=== PATIENT | male | born 1965 | race African-American/Black ===

== ENCOUNTER 2022-01-10 08:52 | Inpatient (IN) | payer MEDICAID, OTHER ==
[~2022-01-10] VITALS: Ht 165.1 cm; Wt 73.1 kg
[~2022-01-10 08:52] MED LIST: AMLO10TA80; CLON0.1T; DIPH25CA83 PO; FAMO-135 PO; HYDR25TA; LISI10TA26; MED4 GT
[2022-01-10] MEDS ORDERED: FUROSEMIDE 40MG/4ML VIAL IV ONE (09:15)
[2022-01-10 09:31] LABS: BASOPHILS % 1.3 % (0.0-2.0); EOSINOPHILS % 1.1 % (0.0-5.0); HEMOGLOBIN. 11.8 g/dL (14.0-18.0); LYMPHOCYTES % 20.3 % (20.0-50.0); MEAN CORPUSCULAR HEMOGLOBIN 24.9 pg (28.0-32.0); MEAN CORPUSCULAR VOLUME 78.4 fL (80.0-94.0); MEAN PLATELET VOLUME 11.1 fl (7.4-10.4); MONOCYTES % 12.6 % (2.0-8.0); NEUTROPHILS % 64.7 % (40.0-76.0); PLATELET 206 x1000/uL (130-400); RED BLOOD CELL COUNT 4.73 mill/uL (4.7-6.1)
[2022-01-10 09:38] LABS: CHLORIDE 110 mEq/L (98-107)
[2022-01-10] MEDS ORDERED: ASPIRIN 325MG TABLET PO ONE (10:45)
[2022-01-10] MEDS ORDERED: ACETAMINOPHEN 325MG TABLET PO PRN (12:45)
[2022-01-10] MEDS ORDERED: ONDANSETRON HCL 4MG/2ML INJ IV PRN (12:45)
[2022-01-10] MEDS ORDERED: CLONIDINE 0.1MG TABLET PO PRN (12:45)
[2022-01-10] MEDS: IPRATROPIUM/ALBUTEROL 0.5-3(2.5)MG/3ML NEB HHN PRN (13:08)
[2022-01-10] MEDS ORDERED: REGADENOSON 0.4 MG/5 ML IV NR (14:00)
[2022-01-10 15:30] LABS: *COCAINE SCREEN URINE PRESUMTIVE POSITIVE (NEGATIVE)
[2022-01-10 15:31] LABS: *AMPHETAMINES SCREEN URINE NEGATIVE (NEGATIVE); *BARBITURATES SCREEN URINE NEGATIVE (NEGATIVE); *BENZODIAZEPINES SCREEN URINE NEGATIVE (NEGATIVE); CANNABINOID URINE SCREEN NEGATIVE (NEGATIVE); METHADONE URINE SCREEN NEGATIVE (NEGATIVE); OPIATES URINE SCREEN NEGATIVE (NEGATIVE); PHENCYCLIDINE URINE SCREEN NEGATIVE (NEGATIVE)
[2022-01-10 19:45] VITALS: BP 130/95
[2022-01-10 20:00] VITALS: BP 135/9
[2022-01-10] MEDS: AMLODIPINE 5MG TABLET PO SCH (21:23)
[2022-01-10] MEDS: CLONIDINE 0.1MG TABLET PO SCH (22:03)
[2022-01-11] VITALS: BP 133/80
[2022-01-11] MEDS ORDERED: ALLO100T MT (01:08)
[2022-01-11] MEDS ORDERED: POTA10CA42 MT (01:08)
[2022-01-11] MEDS ORDERED: COLC0.6C3 MT (01:08)
[2022-01-11] MEDS ORDERED: ISOS20TA8 MT (01:08)
[2022-01-11] MEDS ORDERED: ALBU6.7H9 INH (01:08)
[2022-01-11] MEDS ORDERED: FURO20TA4 PO (01:08)
[2022-01-11 04:00] VITALS: BP 135/84
[2022-01-11 08:00] VITALS: BP 122/92
[2022-01-11 08:08] LABS: BASOPHILS % 0.8 % (0.0-2.0); EOSINOPHILS % 6.4 % (0.0-5.0); HEMATOCRIT. 37.3 % (42.0-52.0); HEMOGLOBIN. 11.8 g/dL (14.0-18.0); LYMPHOCYTES % 33.5 % (20.0-50.0); MEAN CORPUSCULAR HEMOGLOBIN 24.8 pg (28.0-32.0); MEAN CORPUSCULAR VOLUME 78.3 fL (80.0-94.0); MEAN PLATELET VOLUME 11.8 fl (7.4-10.4); MONOCYTES % 12.6 % (2.0-8.0); NEUTROPHILS % 46.7 % (40.0-76.0); PLATELET 202 x1000/uL (130-400); RED BLOOD CELL COUNT 4.76 mill/uL (4.7-6.1); RED CELL DISTRIBUTION WIDTH 18.3 % (11.6-14.6)
[2022-01-11 08:16] LABS: CHLORIDE 111 mEq/L (98-107)
[2022-01-11] MEDS: AMLODIPINE 5MG TABLET PO SCH ×2 (09:06→21:28)
[2022-01-11] MEDS: FUROSEMIDE 40MG/4ML VIAL IV SCH (09:07)
[2022-01-11] MEDS: CLONIDINE 0.1MG TABLET PO SCH ×2 (09:07→21:28)
[2022-01-11] MEDS: ASPIRIN 81MG EC TABLET PO SCH (09:07)
[2022-01-11 12:00] VITALS: BP 118/82
[2022-01-11] MEDS ORDERED: CLONIDINE 0.1MG TABLET PO PRN (12:00)
[2022-01-11 15:49] VITALS: BP 112/71
[2022-01-11 18:36] LABS: CLARITY URINE CLEAR (CLEAR); COLOR URINE YELLOW (YELLOW); KETONES URINE NEGATIVE (NEGATIVE); LEUKOCYTE ESTERASE URINE NEGATIVE (NEGATIVE); NITRITE URINE NEGATIVE (NEGATIVE); OCCULT BLOOD URINE NEGATIVE (NEGATIVE); PROTEIN URINE 1+ (NEGATIVE); SPECIFIC GRAVITY URINE 1.011 (1.005-1.030); UROBILINOGEN URINE 0.2 E.U./dL (0.2-1.0)
[2022-01-11 20:00] VITALS: BP 115/78
[2022-01-12] VITALS: BP 112/81
[2022-01-12 04:00] VITALS: BP 124/85
[2022-01-12 08:00] VITALS: BP 142/94
[2022-01-12] MEDS: ASPIRIN 81MG EC TABLET PO SCH (08:17)
[2022-01-12] MEDS: FUROSEMIDE 40MG/4ML VIAL IV SCH (08:17)
[2022-01-12] MEDS: CLONIDINE 0.1MG TABLET PO SCH ×3 (08:18→22:00)
[2022-01-12] MEDS: COLCHICINE 0.6MG TABLET PO SCH (08:19)
[2022-01-12] MEDS: PREDNISONE 20MG TABLET PO SCH (08:19)
[2022-01-12] MEDS: ALLOPURINOL 300 MG TABLET PO SCH (08:22)
[2022-01-12] MEDS: AMLODIPINE 5MG TABLET PO SCH ×2 (08:24→22:51)
[2022-01-12 08:40] LABS: BASOPHILS % 1.1 % (0.0-2.0); EOSINOPHILS % 6.7 % (0.0-5.0); HEMATOCRIT. 39.2 % (42.0-52.0); HEMOGLOBIN. 12.4 g/dL (14.0-18.0); LYMPHOCYTES % 25.7 % (20.0-50.0); MEAN CORPUSCULAR HEMOGLOBIN 24.8 pg (28.0-32.0); MEAN CORPUSCULAR VOLUME 78.3 fL (80.0-94.0); MEAN PLATELET VOLUME 11.6 fl (7.4-10.4); MONOCYTES % 13.9 % (2.0-8.0); NEUTROPHILS % 52.6 % (40.0-76.0); PLATELET 211 x1000/uL (130-400); RED BLOOD CELL COUNT 5.01 mill/uL (4.7-6.1); RED CELL DISTRIBUTION WIDTH 18.4 % (11.6-14.6)
[2022-01-12] MEDS: IPRATROPIUM/ALBUTEROL 0.5-3(2.5)MG/3ML NEB HHN PRN (08:55)
[2022-01-12 12:00] VITALS: BP 138/85
[2022-01-12 16:00] VITALS: BP 109/77
[2022-01-12] MEDS: FUROSEMIDE 40MG TABLET PO SCH (18:04)
[2022-01-12 20:00] VITALS: BP 114/80
[2022-01-12] MEDS ORDERED: AMLODIPINE 5MG TABLET ONE (22:41)
[2022-01-13] VITALS: BP 125/75
[2022-01-13 04:00] VITALS: BP 112/61
[2022-01-13] MEDS: IPRATROPIUM/ALBUTEROL 0.5-3(2.5)MG/3ML NEB HHN PRN (04:16)
[2022-01-13] MEDS: CLONIDINE 0.1MG TABLET PO SCH (06:00)
[2022-01-13 06:55] LABS: BASOPHILS % 0.6 % (0.0-2.0); EOSINOPHILS % 1.2 % (0.0-5.0); HEMATOCRIT. 35.5 % (42.0-52.0); HEMOGLOBIN. 11.5 g/dL (14.0-18.0); LYMPHOCYTES % 24.6 % (20.0-50.0); MEAN CORPUSCULAR HEMOGLOBIN 25.2 pg (28.0-32.0); MEAN CORPUSCULAR VOLUME 77.8 fL (80.0-94.0); MEAN PLATELET VOLUME 11.6 fl (7.4-10.4); MONOCYTES % 13.2 % (2.0-8.0); NEUTROPHILS % 60.4 % (40.0-76.0); PLATELET 184 x1000/uL (130-400); RED BLOOD CELL COUNT 4.56 mill/uL (4.7-6.1); RED CELL DISTRIBUTION WIDTH 17.5 % (11.6-14.6)
[2022-01-13 07:09] LABS: CHLORIDE 109 mEq/L (98-107)
[2022-01-13 07:26] LABS: PHOSPHORUS 3.2 mg/dL (2.5-4.9)
[2022-01-13 08:00] VITALS: BP 138/93
[2022-01-13] MEDS ORDERED: PREDNISONE 20MG TABLET ONE (08:17)
[2022-01-13] MEDS ORDERED: POTASSIUM CHLORIDE 20MEQ TABLET SR PO ONE (08:22)
[2022-01-13] MEDS ORDERED: AMLODIPINE 5MG TABLET ONE (08:22)
[2022-01-13] MEDS ORDERED: ASPIRIN 81MG EC TABLET PO ONE (08:23)
[2022-01-13] MEDS ORDERED: POTASSIUM CHLORIDE 10MEQ TABLET SR PO SCH (09:00)
[2022-01-13] MEDS ORDERED: FUROSEMIDE 40MG TABLET PO SCH (09:00)
[2022-01-13] MEDS ORDERED: ALLO300T2 PO (09:12)
[2022-01-13] MEDS ORDERED: POTA10CA42 MT (09:12)
[2022-01-13] MEDS ORDERED: FURO40TA5 PO (09:12)
[2022-01-13] MEDS ORDERED: P20 PO (09:12)
[2022-01-13] MEDS ORDERED: ASPI-1406 PO (09:12)
[2022-01-13] MEDS ORDERED: ATOR10TA69 MT (09:12)
[2022-01-13] MEDS ORDERED: FAMO20TA8 MT (09:12)
[2022-01-13] MEDS: FUROSEMIDE 40MG TABLET PO SCH (09:34)
[2022-01-13] MEDS: AMLODIPINE 5MG TABLET PO SCH (09:34)
[2022-01-13] MEDS: ASPIRIN 81MG EC TABLET PO SCH (09:34)
[2022-01-13] MEDS: PREDNISONE 20MG TABLET PO SCH (09:35)
[2022-01-13] MEDS: ALLOPURINOL 300 MG TABLET PO SCH (09:35)
[2022-01-13] MEDS: COLCHICINE 0.6MG TABLET PO SCH (09:35)
[2022-01-15 04:07] LABS: ANA IFA Negative (.)
== END 2022-01-13 12:05 | disposition home or self-care (01) | DRG 194 ==
LOC: ER 08:52 → EDBEDREQ 11:11 → 8WST 12:25 → EDBEDREQTM 12:29 → EDBEDREQ 12:29
PROVIDERS: ADMIT Internal Medicine; ATTEND Internal Medicine
DX: I13.0 Hypertensive heart and chronic kidney disease with heart failure and stage 1 through stage 4 chronic kidney disease, or unspecified chronic kidney disease (principal); J96.01 Acute respiratory failure with hypoxia; I21.4 Non-ST elevation (NSTEMI) myocardial infarction; E44.0 Moderate protein-calorie malnutrition; T56.0X1A Toxic effect of lead and its compounds, accidental (unintentional), initial encounter; I50.23 Acute on chronic systolic (congestive) heart failure; N17.9 Acute kidney failure, unspecified; E78.5 Hyperlipidemia, unspecified; R77.8 Other specified abnormalities of plasma proteins; F14.129 Cocaine abuse with intoxication, unspecified; M19.019 Primary osteoarthritis, unspecified shoulder; M1A.9XX1 Chronic gout, unspecified, with tophus (tophi); N18.31 Chronic kidney disease, stage 3a; Z20.822 Contact with and (suspected) exposure to COVID-19; I08.0 Rheumatic disorders of both mitral and aortic valves; M19.90 Unspecified osteoarthritis, unspecified site; Z79.899 Other long term (current) drug therapy; Z79.82 Long term (current) use of aspirin; Z82.49 Family history of ischemic heart disease and other diseases of the circulatory system; Z87.891 Personal history of nicotine dependence; Z68.26 Body mass index [BMI] 26.0-26.9, adult; Y92.89 Other specified places as the place of occurrence of the external cause; N14.3 Nephropathy induced by heavy metals
CPT/HCPCS: 36415; 71045; 76770; 80048; 80053; 80305; 81003; 82164; 82550; 83735; 83880; 84100; 84484; 84550; 85025; 86256; 86431; 87426; 93005; 93306; 93970; 94640; 99291; J1940; J2785; J7512